=== PATIENT | female | born 1970 | race Two or more races ===

== ENCOUNTER 2019-09-01 01:17 | Emergency (ER) | payer MEDICARE ==
[~2019-09-01] VITALS: Ht 162.6 cm; Wt 63.0 kg
--- NOTE | 2019-09-01 01:30 | NUR ---
MAYCO MILIAN, PT WAS PICKED UP AT [facility] FOR ETOH. UNABLE TO DETERMINE ALL OF MEDICAL HISTORY. SHE SAYS SHE HAS A HX OF CANCER ON HER RIGHT HAND. PT IS ABLE TO STATE HER NAME AND STATES THAT SHE "HURTS ALL OVER" ALSO SAYING THAT SHE HAS HAD A LOT TO DRINK TONIGHT. PT STATES SHE IS FROM [place].
--- NOTE | 2019-09-01 01:31 | NUR ---
IS ROB VASQUEZ AT [phone] STAYING AT [facility] ROOM 2220
[2019-09-01 03:17] VITALS: BP 99/58
--- NOTE | 2019-09-01 03:17 | NUR ---
PT RESTING ON GURNEY, EYES CLOSED. VITAL SIGNS ON MONITOR STABLE. RESPIRATIONS EVEN AND UNLABORED.
--- NOTE | 2019-09-01 04:50 | NUR ---
CALLED PT , SAYS HE IS COMING TO PICK HER UP
--- NOTE | 2019-09-01 04:57 | NUR ---
PT AMBULATORY TO THE DISCHARGE WITH STEADY GAIT. [id number]. SAFE DISCHARGE PLAN IN PLACE
== END 2019-09-01 04:58 | disposition home or self-care (01) ==
LOC: ED 01:47
DX: F10.120 Alcohol abuse with intoxication, uncomplicated (principal); Y90.9 Presence of alcohol in blood, level not specified
CPT/HCPCS: 99283